=== PATIENT | female | born 1975 | race Caucasian/White ===

== ENCOUNTER → 2017-10-31 13:46 | Outpatient (CLI) | payer OTHER, SELFPAY ==
[2017-11-04 15:40] LABS: HPV Reflexed? NOT INDICATED
== END ==
PROVIDERS: Visit Provider Obstetrics & Gynecology
DX: Z12.4 Encounter for screening for malignant neoplasm of cervix (principal)
CPT/HCPCS: 88175; G0145

== ENCOUNTER → 2021-06-04 | Outpatient (CLI) | payer OTHER, SELFPAY ==
[2021-06-06 16:16] LABS: HPV APTIMA, High Risk Negative (Negative)
== END | disposition home or self-care (01) ==
LOC: LABSPEC 10:29
PROVIDERS: Visit Provider Student in an Organized Health Care Education/Training Program
DX: Z12.4 Encounter for screening for malignant neoplasm of cervix (principal)
CPT/HCPCS: 87624; 88175; G0145

== ENCOUNTER 2022-11-15 15:34 | Emergency (ER) | payer OTHER, SELFPAY ==
[2022-11-15 15:36] VITALS: BP 168/91; PULSE 85; RESP 18; TEMP 36; O2SAT 100; BMI 37.7
--- NOTE | 2022-11-15 18:35 | EX.ED.DYSGE1 ---
HPI <MILANA Jurado - Last Filed: 11/15/22 20:32> History of Present Illness Chief Complaint: General Illness Narrative Narrative: Patient presenting today requesting a rabies vaccination after waking up and seeing a bat in her room on Friday. She does not think that she was bit by the bat and has not found any amanda on her body. However, she called her PCP and he encouraged her to come to the emergency department to receive treatment. She denies any fever, chills, chest pain, shortness of breath, abdominal pain, nausea, vomiting. PMH includes hypertension. PFSH <MILANA Jurado - Last Filed: 11/15/22 20:32> PFSH Medical History no medical history Allergy/AdvReac Type Severity Reaction Status Date / Time Penicillins [PCN] Allergy Rash Verified 11/15/22 15:36 Social History Smoking Status: Never smoker ROS <MILANA Jurado - Last Filed: 11/15/22 20:32> ROS ED Constitutional Constitutional ED: Denies chills, fever(s) or sweats Cardiovascular Cardiovascular: Denies chest pain Respiratory/Chest Respiratory/Chest: Denies cough or dyspnea Gastrointestinal Gastrointestinal: Denies abdominal pain, nausea or vomiting Musculoskeletal Musculoskeletal: Denies arthralgias or myalgias Integumentary Denies abscess, Abrasions or rash Neurologic Neurologic: Denies confusion, dizziness, paresthesias or weakness EXAM <MILANA Jurado Last Filed: 11/15/22 20:32> Physical Exam Const Vital Signs: 11/15/22 15:36 11/15/22 18:00 Temperature 96.8 F L Temperature Source Temporal Pulse Rate 85 Respiratory Rate 18 Respiratory Effort Normal Non-Labored Respiratory Pattern Normal Blood Pressure 168/91 H Blood Pressure Mean 116 Pulse Ox 100 Oxygen Delivery Method Room Air Positive well nourished, well developed and no apparent distress General Appearance ED: well developed HEENT Reports normocephalic and head/scalp atraumatic Mouth ED: Yes moist mucous membranes normal Eyes PERRL and EOMs intact bilaterally Neck full ROM and supple Chest Wall inspection of chest normal Resp normal respiratory effort and clear to auscultation bilaterally Cardio regular rate and regular rhythm GI soft to palpation, non-tender, non-distended and no masses Back/Spine normal ROM and normal to inspection Extremity normal to inspection and full ROM Neuro oriented x3, CN's II-XII intact bilaterally, moves all extremities, no focal motor deficits and no sensory deficits noted Sensorium / Orientation: awake and alert Psych mental status grossly normal and thought process normal Skin no rashes or lesions noted and no wounds <Dr. Brant Pace MD - Last Filed: 11/15/22 20:56> Physical Exam Const Vital Signs: 11/15/22 15:36 11/15/22 18:00 Temperature 96.8 F L Temperature Source Temporal Pulse Rate 85 Respiratory Rate 18 Respiratory Effort Normal Non-Labored Respiratory Pattern Normal Blood Pressure 168/91 H Blood Pressure Mean 116 Pulse Ox 100 Oxygen Delivery Method Room Air MDM <MILANA Jurado - Last Filed: 11/15/22 20:32> [facility] Narrative Medical decision making narrative: Patient wanting to be treated for possible rabies exposure after finding a bat in her room Friday night. She was that she was sleeping and was woken up due to hearing a noise in her room, her cat knocked it on the ground and she picked it up to throw it out of the window. She has no other complaints. She does not think that she was bit, but wanted to be safe and receive rabies prophylaxis. She has never been exposed to rabies in the past and has never received rabies vaccines. She will receive the immunoglobulin here and rabies vaccine. She will be given a schedule to follow-up to have the following vaccinations done. She will be discharged home in stable condition and is comfortable with plan. <Dr. Brant Pace MD - Last Filed: 11/15/22 20:56> [facility] Treatment and Re-Evaluation Comments:: Seen and evaluated independently and in conjunction with physician back office medical assistant. Agree with notes above unless documented otherwise. Patient exposed to a bat, she woke up with it in her room and then she physically took it and threw it outside. She does not have any pain and did not get bitten by it that she knows of. Never had rabies vaccine. Well-appearing, no signs of any bite. RIG, immunization series advised patient is amenable. Discharge Plan Triage Chief Complaint: General Illness ED Midlevel Provider: Henna Heller ED Provider: Brant Pace Dx/Rx/DC Orders Clinical Impression: Rabies, need for prophylactic vaccination against, Exposure to bat without known bite Instructions: Rabies Virus Strain [id number] antigen (Propiolactone Inactivated)... Primary Care Provider: Misael Rivera Referrals: Misael Rivera MD [Primary Care Provider] - Activity Restrictions/Additional Instructions: Please follow-up for repeat vaccines according to the schedule you have been given. Disposition Disposition: Home, Self Care
[2022-11-15] MEDS: Rabies Immune Globulin/PF 300 UNIT/ML, 5 ML VIAL 2400 UNIT IM (20:34)
[2022-11-15] MEDS: Rabies Vaccine,Human Diploid 2.5 UNITS Vial IM (20:45)
[2022-11-15 21:00] VITALS: RESP 20
== END 2022-11-15 21:20 | disposition home or self-care (01) ==
PROVIDERS: Emergency Provider Emergency Medicine; PCP Family Medicine; Visit Provider Emergency Medicine
DX: Z23 Encounter for immunization (principal)
CPT/HCPCS: 90675; 96372; 99282; 90375

== ENCOUNTER → 2022-11-18 | Outpatient (CLI) | payer OTHER, SELFPAY ==
[2022-11-18 09:39] VITALS: BP 128/78; BP 134/78; PULSE 78; RESP 16; TEMP 36.6; O2SAT 98; BMI 37.8
[2022-11-18] MEDS: Rabies Vaccine,Human Diploid 2.5 UNITS Vial IM (09:59)
--- NOTE | 2022-11-18 16:28 | EX.ED.GENINJ ---
HPI History of Present Illness Chief Complaint: Meds Only Narrative Narrative: I did not participate in this patient's care. PFSH PFSH Medical History no medical history Allergy/AdvReac Type Severity Reaction Status Date / Time Penicillins [PCN] Allergy Rash Verified 11/15/22 15:36 Social History Smoking Status: Never smoker EXAM Physical Exam Const Vital Signs: 11/18/22 09:39 11/18/22 09:39 Temperature 97.8 F Temperature Source Temporal Pulse Rate 78 78 Respiratory Rate 16 16 Blood Pressure 134/78 H 128/78 H Blood Pressure Mean 96 94 Pulse Ox 98 98 Oxygen Delivery Method Room Air Room Air Discharge Plan Triage Chief Complaint: Meds Only ED Provider: Barrie Escobar Dx/Rx/DC Orders Primary Care Provider: Misael Rivera Referrals: Misael Rivera MD [Primary Care Provider] -
== END | disposition home or self-care (01) ==
PROVIDERS: PCP Family Medicine; Visit Provider Emergency Medicine
DX: Z23 Encounter for immunization (principal)
CPT/HCPCS: 90675; 96372

== ENCOUNTER 2022-11-22 10:47 | Outpatient (CLI) | payer OTHER, SELFPAY ==
[2022-11-22 11:26] VITALS: BP 151/89; PULSE 87; RESP 16; TEMP 37; O2SAT 100; BMI 37.1
[2022-11-22] MEDS: Rabies Vaccine,Human Diploid 2.5 UNITS Vial IM (11:28)
== END 2022-11-22 11:43 | disposition home or self-care (01) ==
PROVIDERS: PCP Family Medicine; Visit Provider Emergency Medicine
DX: Z23 Encounter for immunization (principal); Z20.3 Contact with and (suspected) exposure to rabies
CPT/HCPCS: 96372; 90675

== ENCOUNTER 2022-11-29 08:25 | Outpatient (CLI) | payer OTHER, SELFPAY ==
[2022-11-29 08:27] VITALS: BP 150/79; PULSE 77; RESP 14; O2SAT 100
[2022-11-29 08:28] VITALS: BP 150/79; PULSE 77; RESP 14; TEMP 36.6; O2SAT 100; BMI 36.6
[2022-11-29] MEDS: Rabies Vaccine,Human Diploid 2.5 UNITS Vial IM (09:00)
== END 2022-11-29 09:35 | disposition home or self-care (01) ==
LOC: ED 09:35
PROVIDERS: PCP Family Medicine
DX: Z23 Encounter for immunization (principal); Z20.3 Contact with and (suspected) exposure to rabies
CPT/HCPCS: 96372; 90675